=== PATIENT | male | born 1950 | race Caucasian/White ===

== ENCOUNTER 2017-04-04 17:31 | Outpatient (CLI) | payer BC ==
--- NOTE | 2017-04-04 19:38 | RAD ---
LEFT FEMUR 04/04/17 AP and lateral views are provided. No fracture or area of bony destruction was seen. The femur appear ed normal for age. Femoral artery calcifications are evident. IMPRESSION: No acute bony finding. POS: HOME
== END 2017-04-04 17:32 | disposition home or self-care (01) ==
LOC: BURRAD 17:31
PROVIDERS: ATTEND Family Medicine
DX: M79.605 Pain in left leg (principal)